=== PATIENT | female | born 1980 | race African-American/Black ===

== ENCOUNTER → 2018-05-28 | Outpatient (CLI) | payer OTHER ==
[~2018-05-28] MED LIST: ACETAMINOPHEN325 M1 PO; ESTRACE PO; IBUPROFEN 400400 M1 PO; IRON; LOESTRIN1 EAC1; NORCO 5-325 TA1 EACH PO; NOVAFERRUM125 MG/5 M PO; PREMARIN1.25 MG PO; PROVERA10 MG PO
== END ==
LOC: RAD 09:07
DX: N63.20 Unspecified lump in the left breast, unspecified quadrant (principal); R92.2 Inconclusive mammogram